=== PATIENT | female | born 1960 | race Caucasian/White ===

== ENCOUNTER 2019-10-23 07:36 | Day surgery (SDC) | payer BC ==
[2019-10-17 11:18] LABS: BASOPHILS # (AUTO) 0.1 X10'3 (0-0.2); BASOPHILS % (AUTO) 0.7 % (0-1); EOSINOPHILS # (AUTO) 0.1 X10'3 (0-0.9); EOSINOPHILS % (AUTO) 1.2 % (0-6); LYMPHOCYTES # (AUTO) 1.6 X10'3 (1.1-4.8); LYMPHOCYTES % (AUTO) 22.7 % (21-51); MEAN CORPUSCULAR HEMOGLOBIN 33.4 PG (27.0-31.0); MEAN CORPUSCULAR HGB CONC 33.4 g/dL (33.0-36.5); MEAN CORPUSCULAR VOLUME 99.9 FL (78-98); MEAN PLATELET VOLUME 8.9 FL (7.4-10.4); MONOCYTES # (AUTO) 0.4 X10'3 (0-0.9); MONOCYTES % (AUTO) 5.2 % (2-12); NEUTROPHILS % (AUTO) 70.2 % (42-75); PRE OP HEMATOCRIT 44.8 % (35.0-45.0); PRE OP PLATELET COUNT 250 X10'3 (140-440); RED BLOOD COUNT 4.48 X10'6 (4.20-5.60); RED CELL DISTRIBUTION WIDTH 14.1 % (11.5-14.5)
[2019-10-17 11:18] LABS: CLARITY,URINE SLIGHTLY CLOUDY (Clear); COLOR,URINE YELLOW (Yellow); GLUCOSE, URINE NEGATIVE (Neg); KETONES,URINE NEGATIVE (Neg); LEUKOCYTE ESTERASE ,URINE NEGATIVE (Neg); NITRITES, URINE NEGATIVE (Neg); OCCULT BLOOD,URINE NEGATIVE (Neg); PROTEIN,URINE 30 mg/dl (Neg); UROBILINOGEN,URINE 0.2 E.U/dL (0.2-1.0)
[2019-10-17 11:25] LABS: PRE OP PROTIME 10.7 SECONDS (9.0-12.0)
[2019-10-17 11:26] LABS: UA COLLECTION TYPE CLN CATCH MIDSTREAM
[2019-10-17 11:27] LABS: MUCUS STRANDS FEW /LPF (Neg); SQUAMOUS EPITHELIAL CELL,UR FEW /LPF (FEW)
[2019-10-17 11:28] LABS: BACTERIA,URINE 1+ /HPF (Neg); RBC,URINE 0-2 /HPF (0-2); WBC,URINE 0-4 /HPF (0-4)
[2019-10-17 11:31] LABS: ALBUMIN 4.2 G/DL (3.4-5.0); ALBUMIN/GLOBULIN RATIO 1.1 (1.1-1.5); ALKALINE PHOSPHATASE 84 IU/L (46-116); BLOOD UREA NITROGEN 16 MG/DL (7-18); BUN/CREATININE RATIO 16.2 (6.6-38.0); CALCIUM 9.4 MG/DL (8.5-10.1); CHLORIDE 107 MMOL/L (99-107); CREATININE 0.99 MG/DL (0.40-0.90); PRE OP ALT 39 U/L (30-65); PRE OP ANION GAP 10 (8-16); PRE OP AST 26 U/L (10-37); PRE OP BILIRUB, TOTAL 0.3 MG/DL (0.0-1.0); PRE OP GLUCOSE 90 MG/DL (70-104); PRE OP SODIUM 141 MMOL/L (135-145); TOTAL CARBON DIOXIDE 24.5 MMOL/L (24-32); TOTAL PROTEIN 7.9 G/DL (6.4-8.2); eGFR 58 ML/MIN
[2019-10-17 11:32] LABS: PRE OP POTASSIUM 4.4 MMOL/L (3.4-5.1)
[2019-10-23] VITALS (20 sets, daily range): BP systolic 109–150; BP diastolic 71–86
[~2019-10-23] VITALS: Ht 160 cm; Wt 70.3 kg
[~2019-10-23 07:36] MED LIST: ATOR-2 PO; BUPIVAcaine/PF 2.5 mg/ml (0.25%) 30ml vial ONE; MELA10TA2 PO; SERT100T10 PO; VITAMIN C; VITAMIN D; VITAMIN E; ceFOXitin sod/dextrose 2g/50ml 50 ML IV ONE; famotidine 20mg tablet PO ONE; meperidine/PF 25mg/ml syringe IV PRN; morphine 2 MG/ML inj. syringe IV PRN; morphine 4 MG/ML inj SYRINge IV PRN; ondansetron/PF 4mg/2ml inj IV PRN; proCHLORperazine 10 MG/2 ml inj IV PRN; ringers solution, lacted 1,000 ML IV SCH
[2019-10-23] MEDS ORDERED: propofol inj 20 ML IV ONE (09:03)
[2019-10-23] MEDS ORDERED: midazolam 2 mg/2 ml injection ONE (09:03)
[2019-10-23] MEDS ORDERED: LIDOcaine 2% (20mg/ml) 5ml vial ONE (09:03)
[2019-10-23] MEDS ORDERED: fentaNYL /PF 50mcg/ml 5ml ampule ONE (09:03)
[2019-10-23] MEDS ORDERED: rocuronium 10mg/ml inj IV ONE (09:04)
[2019-10-23] MEDS ORDERED: desflurane 240ml liquid inh. IH ONE (09:05)
[2019-10-23] MEDS ORDERED: dexamethasone sod phosphate 10mg/ml inj ONE (09:05)
[2019-10-23] MEDS ORDERED: ondansetron/PF 4mg/2ml inj ONE (11:13)
--- NOTE | 2019-10-23 11:32 | NUR ---
RECEIVED FROM OR VIA [facility] ACCOMPANIED BY ANESTHESIOLOGIST DR CALLE, REPORT GIVEN. PT DROWSY BUT AROUSES EASILY AND DENIES PAIN AT THIS TIME. 20 GAUGE PIV L WRIST PATENT AND RUNNING LR AT 100 ML/HR. LG AND SMALL BANDAIDS X4 TO ABD CDI, SAMARA PAD IN PLACE WITH SCANT SS DRAINAGE. ABD SOFT, VSS, SKIN PINK AND WARM, GOOD CAP REFILL, RESTING COMFORTABLY.
== END 2019-10-23 14:32 | disposition home or self-care (01) ==
LOC: PAS 07:36
PROVIDERS: ATTEND Obstetrics & Gynecology
DX: R10.2 Pelvic and perineal pain (principal); D25.9 Leiomyoma of uterus, unspecified; F32.9 Major depressive disorder, single episode, unspecified; R87.811 Vaginal high risk human papillomavirus (HPV) DNA test positive; R87.620 Atypical squamous cells of undetermined significance on cytologic smear of vagina (ASC-US); Z88.2 Allergy status to sulfonamides; Z87.891 Personal history of nicotine dependence; Z98.890 Other specified postprocedural states
CPT/HCPCS: 36415; 58571; 80053; 81001; 82948; 85025; 85610; 85730; 86885; 86900; 86901; 93005; C1758; J0694; J1100; J2001; J2175; J2250; J2405; J2704; J3010; J3490; J7120; U0003; A4618; A7000

== ENCOUNTER 2024-09-18 12:47 | Inpatient (IN) | payer BC, SELFPAY ==
[~2024-09-18] VITALS: Ht 160 cm; Wt 76.6 kg
[~2024-09-18 12:47] MED LIST changes: -BUPIVAcaine/PF 2.5 mg/ml (0.25%) 30ml vial ONE; +SERT-434 PO; -SERT100T10 PO; -ceFOXitin sod/dextrose 2g/50ml 50 ML IV ONE; -famotidine 20mg tablet PO ONE; -meperidine/PF 25mg/ml syringe IV PRN; -morphine 2 MG/ML inj. syringe IV PRN; -morphine 4 MG/ML inj SYRINge IV PRN; -ondansetron/PF 4mg/2ml inj IV PRN; -proCHLORperazine 10 MG/2 ml inj IV PRN; -ringers solution, lacted 1,000 ML IV SCH
--- NOTE | 2024-09-18 15:26 | Physician Documentation ---
History of Present Illness ~ Chief Complaint: Back Pain Stated Complaint: BACK PAIN Time Seen by MD: 15:08 HPI This is a 64-year-old female who presents with lumbar back pain onset August 08, patient reports that she was diagnosed with a L1 compression fracture in prescribed Cades and muscle relaxers by her primary care provider, patient is awaiting an MRI on October 03. Patient reports that she aggravated her back pain weeks ago while moving items in her freezer. Patient reports that despite pain medications prescribed by care provider the pain is intolerable. Patient reports no new numbness, weakness, or loss of bowel or bladder control however does report significant constipation and feeling of bloating with right-sided abdominal pain, patient reports that she has had two bowel movements since August 08, with last bowel movement and proximally two weeks ago. Patient reports she is still passing gas, reports no vomiting or fever. Medication Reconciliation Allergies: Coded Allergies: Sulfa (Sulfonamide Antibiotics) (Verified Adverse Reaction, Unknown, FEELS LIKE I AM HAVING A HEART ATTACK, 09/18/24) Scheduled Cyclobenzaprine HCl (Cyclobenzaprine HCl), 1 TAB PO Q8H, (Reported) Zinc Sulfate (Zinc), 1 TAB PO DAILY, (Reported) Scheduled PRN Hydrocodone Bit/Acetaminophen (Hydrocodone-Apap 10-325 Tablet), 1 TAB PO TID PRN PRN for pain, (Reported) Miscellaneous Medications [Vitamin C ], Unknown Dose, (Reported) [Vitamin D], (Reported) [Vitamin E], (Reported) Discontinued Medications Atorvastatin Calcium (Atorvastatin Calcium), 80 MG PO QPM, (Reported) Discontinued Reason: patient no longer taking Melatonin (Melatonin), 1 TAB PO HS, (Reported) Discontinued Reason: patient no longer taking Sertraline HCl (Sertraline HCl), 100 MG PO DAILY, (Reported) Discontinued Reason: patient no longer taking Review of Systems ROS Low back pain, constipation, and right-sided abdominal pain as stated above in the HPI, otherwise all systems are reviewed and negative. Physical Exam Physical Exam Vital Signs: Temperature: 97.6, Source: Temporal, Heart Rate: 104, Respiratory Rate: 18, BP: 126/84, Pulse Oximetry: 99, Weight: 76.550 Physical Exam VITALS: Reviewed and as above. GENERAL: Alert, nontoxic appearing, no apparent distress. RESPIRATORY: No increased work of breathing, no respiratory distress, speaking in full clear sentences, lung sounds clear in all jimenez CV: Regular rate and rhythm no murmur BACK: Nontender to palpation including no midline tenderness to palpation, no CVA tenderness GI: Nondistended, nontender to palpation, no rebound, no guarding, bowel sounds present Progress Progress Note 1947: Spoke with hospitalist resident Dr. Villagran who kindly accepts patient for admission Results/Orders Results/Orders Orders - KALIN ABEBE Urinalysis, Cult If Indicated (09/18/24 15:17) Ct Abdomen Pelvis (09/18/24 16:53) Ondansetron Inj. (Zofran 4mg/2ml Vial) (09/18/24 16:50) Polyethylene Glycol 3350 Pkt (Miralax Pa (09/18/24 21:00) Page Hospitalist (09/18/24 18:52) Fill Out Med Reconciliation (09/18/24 18:52) Completed Orders - KALIN ABEBE Hydrocodone/Apap 10/325 (Cades 10/325mg (09/18/24 15:20) Cbc/Diff (09/18/24 15:17) Lipase (09/18/24 15:17) CMP (09/18/24 15:17) Ct Abdomen Pelvis (09/18/24 16:53) Iohexol 300mg/Ml 100ml Inj. (Omnipaque-3 (09/18/24 16:04) Normal Saline 1000ml (Sodium Chloride 10 (09/18/24 16:20) Ketorolac Trometh 15mg/Ml Vial (Toradol (09/18/24 16:50) Morphine 4mg/Ml Inj. (Morphine Inj.) (09/18/24 16:50) Methylnaltrexone Br Inj (Relistor Inj (09/18/24 18:40) Hgb A1c (09/18/24 15:35) Medications Received in ER Medications (Trade) Dose Ordered Sig/Franky Route PRN Reason Start Time Stop Time Status Last Admin Dose Admin (Miralax packet) 17 gm HS PO 09/18/24 21:00 09/18/24 22:04 17 GM (Cades 5/325mg tablet) 1 tab Q4H PRN PO MODERATE PAIN 4-6 09/18/24 20:05 09/18/24 22:00 1 TAB (morphine inj.) 1 mg Q4H PRN IV moderate pain (4-6) 09/18/24 20:05 09/18/24 22:06 1 MG (morphine inj.) 2 mg Q4H PRN IV severe pain (7-10) 09/18/24 20:05 09/19/24 02:12 2 MG Vital Signs 09/18/24 09/18/24 09/18/24 09/18/24 13:10 15:56 17:22 17:53 Temp 97.6 Pulse 104 Resp 18 16 18 15 B/P (MAP) 126/84 Pulse Ox 99 09/18/24 09/18/24 09/18/24 09/18/24 17:53 19:32 20:40 22:00 Resp 15 12 18 12 B/P (MAP) 09/18/24 09/18/24 09/18/24 22:06 22:08 22:08 Resp 16 12 12 Laboratory Tests Test 09/18/24 15:35 White Blood Count 8.4 Red Blood Count 4.63 Hemoglobin 14.5 Hematocrit 42.8 Mean Corpuscular Volume 92.4 Mean Corpuscular Hemoglobin 31.2 H Mean Corpuscular Hemoglobin Concent 33.8 Red Cell Distribution Width 13.4 Platelet Count 318 Mean Platelet Volume 7.8 Neutrophils (%) (Auto) 77.0 H Lymphocytes (%) (Auto) 15.5 L Monocytes (%) (Auto) 4.5 Eosinophils (%) (Auto) 2.3 Basophils (%) (Auto) 0.7 Neutrophils # (Auto) 6.4 Lymphocytes # (Auto) 1.3 Monocytes # (Auto) 0.4 Eosinophils # (Auto) 0.2 Basophils # (Auto) 0.1 CBC Comment Sodium Level 142 Potassium Level 3.7 Chloride Level 104 Carbon Dioxide Level 24.7 Anion Gap 13 Blood Urea Nitrogen 21 H Creatinine 1.00 H Estimated GFR/1.73 m2 56 BUN/Creatinine Ratio 21.0 H Glucose Level 120 H Hemoglobin A1c 5.7 Calcium Level 10.1 Total Bilirubin 0.4 Aspartate Amino Transf (AST/SGOT) 26 Alanine Aminotransferase (ALT/SGPT) 38 Alkaline Phosphatase 137 H Total Protein 8.2 Albumin 3.9 Globulin 4.3 Albumin/Globulin Ratio 0.9 L Lipase 33 Chemistry Comments EKG/XRAY/CT/US/VASC/MRI CT : Impression EXAM: CT Abdomen and Pelvis With Intravenous Contrast CLINICAL INDICATION: R Abd Pain TECHNIQUE: Axial computed tomography images of the abdomen and pelvis with in travenous contrast. This CT exam was performed using one or more of the following dose reduction techniques: automated exposure control, adjustment of the mA and/or kV according to patient size, and/or use of iterative reconstruction technique. CONTRAST: COMPARISON: None FINDINGS: LUNG BASES: Unremarkable. No mass. No consolidation. MEDIASTINUM: Small esophageal hiatal hernia. ABDOMEN: LIVER: Hepatomegaly with fatty infiltration. GALLBLADDER AND BILE DUCTS: Unremarkable. No calcified stones. No ductal dilation. PANCREAS: Unremarkable. No mass. No ductal dilation. SPLEEN: Unremarkable. No splenomegaly. ADRENALS: Unremarkable. No mass. KIDNEYS AND URETERS: Unremarkable. No stones within either kidney. No hydronephrosis. STOMACH AND BOWEL: Fecal retention in the colon consistent with constipation. No obstruction. No mucosal thickening. PELVIS: APPENDIX: No findings to suggest acute appendicitis. BLADDER: Unremarkable. No mass. REPRODUCTIVE: Unremarkable as visualized. ABDOMEN and PELVIS: INTRAPERITONEAL SPACE: Unremarkable. No free air. No significant fluid collection. BONES/JOINTS: Severe anterior wedging deformity of L1 and T12 vertebral bodies. Further evaluation with MRI is recommended. Healed fracture deformity left inferior pubic ramus. No dislocation. SOFT TISSUES: Unremarkable. VASCULATURE: Unremarkable. No abdominal aortic aneurysm. LYMPH NODES: Unremarkable. No enlarged lymph nodes. OTHER FINDINGS: . IMPRESSION: 1. Severe anterior wedging deformity of L1 and T12 vertebral bodies. Further evaluation with MRI is recommended. 2. Small esophageal hiatal hernia. 3. Hepatomegaly with fatty infiltration. 4. Fecal retention in the colon consistent with constipation. 5. No obstructive uropathy. Electronically Signed by:HARSH MELENDREZ MD Date & Time: 09/18/241727 Dictated by: HARSH MELENDREZ MD Dictation date and time: 09/18/241727 I have reviewed and agree with the radiology report. I have reviewed and interpreted the imaging as: No air-fluid levels, no free peritoneal air Medical Decision Making Findings This 64-year-old female with known L1 compression fracture presented with severe low back pain that has not well managed with prescribed opioid pain medications or muscle relaxers, patient received oral opioid pain medication without decrease in pain, patient required IV Toradol and IV morphine to achieve decrea se in pain in is still reporting pain though it has decreased from initial presentation. CT abdomen pelvis obtained due to patient reporting only two bowel movements in the last six weeks and a feeling of abdominal distention, the CT did demonstrate evidence of constipation and confirmed L1 compression fracture though there was no evidence of retropulsion. Was reassuring CT did n ot demonstrate evidence of bowel obstruction, drink patient does not have severe abdominal pain to palpation, and reassuring patient is still passing gas. I believe patient would benefit from admission for pain management for intractable back pain. Was team contacted who kindly accepts patient for admission. Differential Dx:Considerations: Include: Appendicitis, Bowel obstruction, Cholelithiasis, Musculoskeletal pain, Pancreatitis, Pyelonephritis, Strain, Urinary obstruction, Urolithiasis Departure Disposition: ADMITTED INPATIENT Admitted to Inpatient Unit: to hospitalist Impression: Primary Impression: Intractable back pain Additional Impression: Constipation Qualified Codes: K59.03 - Drug induced constipation Referrals: NO PRIMARY CARE PROVIDER (PCP) Education Educated: Patient, Family Educated regarding: diagnosis, treatment, prognosis Signature Scribe Signature: No scribe Attestation: The note accurately reflects work and decisions made by me.ABISAI Velez 09/19/24 02:53 KALIN ABEBE Sep 18, 2024 15:26
[2024-09-18 15:46] LABS: BASOPHILS # (AUTO) 0.1 X10'3 (0-0.2); BASOPHILS % (AUTO) 0.7 % (0-1); EOSINOPHILS # (AUTO) 0.2 X10'3 (0-0.9); EOSINOPHILS % (AUTO) 2.3 % (0-6); HEMATOCRIT 42.8 % (35.0-45.0); HEMOGLOBIN 14.5 g/dl (12.0-16.0); LYMPHOCYTES # (AUTO) 1.3 X10'3 (1.1-4.8); LYMPHOCYTES % (AUTO) 15.5 % (21-51); MEAN CORPUSCULAR HEMOGLOBIN 31.2 PG (27.0-31.0); MEAN CORPUSCULAR HGB CONC 33.8 g/dL (33.0-36.5); MEAN CORPUSCULAR VOLUME 92.4 FL (78-98); MEAN PLATELET VOLUME 7.8 FL (7.4-10.4); MONOCYTES # (AUTO) 0.4 X10'3 (0-0.9); MONOCYTES % (AUTO) 4.5 % (2-12); NEUTROPHILS # (AUTO) 6.4 X10'3 (1.8-7.7); PLATELET COUNT 318 X10'3 (140-440); RED BLOOD COUNT 4.63 X10'6 (4.20-5.60); RED CELL DISTRIBUTION WIDTH 13.4 % (11.5-14.5); WHITE BLOOD COUNT 8.4 X10'3 (4.5-11.0)
[2024-09-18] MEDS: HYDROcodone/acetaminophen 10/325mg tab PO ONE (15:56)
[2024-09-18 16:00] LABS: ALANINE AMINOTRANSFERASE 38 U/L (12-78); ALBUMIN 3.9 G/DL (3.4-5.0); ALBUMIN/GLOBULIN RATIO 0.9 (1.1-1.5); ALKALINE PHOSPHATASE 137 IU/L (46-116); ANION GAP 13 (8-16); ASPARTATE AMINO TRANSFERASE 26 U/L (10-37); BILIRUBIN,TOTAL 0.4 MG/DL (0.1-1.0); BLOOD UREA NITROGEN 21 MG/DL (7-18); CALCIUM 10.1 MG/DL (8.5-10.1); CHLORIDE 104 MMOL/L (99-107); GLUCOSE 120 MG/DL (70-104); LIPASE 33 U/L (16-77); POTASSIUM 3.7 MMOL/L (3.5-5.1); SODIUM 142 MMOL/L (135-145); TOTAL CARBON DIOXIDE 24.7 MMOL/L (24-32); TOTAL PROTEIN 8.2 G/DL (6.4-8.2); eCRCL 48 ML/MIN; eGFR 56 ML/MIN
[2024-09-18] MEDS ORDERED: iohexol 300mg/ml 100ml inj. ONE (16:04)
[2024-09-18] MEDS: morphine 4 MG/ML inj SYRINge IV ONE (17:22)
[2024-09-18] MEDS: ketorolac trometh 15mg/ml vial 15 MG/ML ML IM ONE (17:22)
[2024-09-18] MEDS: normal saline 1000ML IV soln IVB ONE (17:23)
[2024-09-18] MEDS: ondansetron/PF 4mg/2ml inj IV PRN (17:30)
--- NOTE | 2024-09-18 17:31 | RADIOLOGY REPORT ---
EXAM: CT Abdomen and Pelvis With Intravenous Contrast CLINICAL INDICATION: R Abd Pain TECHNIQUE: Axial computed tomography images of the abdomen and pelvis with intravenous contrast. Th is CT exam was performed using one or more of the following dose reduction techniques: automated exp osure control, adjustment of the mA and/or kV according to patient size, and/or use of iterative gabriela nstruction technique. CONTRAST: COMPARISON: None FINDINGS: LUNG BASES: Unremarkable. No mass. No consolidation. MEDIASTINUM: Small esophageal hiatal hernia. ABDOMEN: LIVER: Hepatomegaly with fatty infiltration. GALLBLADDER AND BILE DUCTS: Unremarkable. No calcified stones. No ductal dilation. PANCREAS: Unremarkable. No mass. No ductal dilation. SPLEEN: Unremarkable. No splenomegaly. ADRENALS: Unremarkable. No mass. KIDNEYS AND URETERS: Unremarkable. No stones within either kidney. No hydronephrosis. STOMACH AND BOWEL: Fecal retention in the colon consistent with constipation. No obstruction. No mucosal thickening. PELVIS: APPENDIX: No findings to suggest acute appendicitis. BLADDER: Unremarkable. No mass. REPRODUCTIVE: Unremarkable as visualized. ABDOMEN and PELVIS: INTRAPERITONEAL SPACE: Unremarkable. No free air. No significant fluid collection. BONES/JOINTS: Severe anterior wedging deformity of L1 and T12 vertebral bodies. Further evaluation with MRI is recommended. Healed fracture deformity left inferior pubic ramus. No dislocation. SOFT TISSUES: Unremarkable. VASCULATURE: Unremarkable. No abdominal aortic aneurysm. LYMPH NODES: Unremarkable. No enlarged lymph nodes. OTHER FINDINGS: . IMPRESSION: 1. Severe anterior wedging deformity of L1 and T12 vertebral bodies. Further evaluation with MRI is recommended. 2. Small esophageal hiatal hernia. 3. Hepatomegaly with fatty infiltration. 4. Fecal retention in the colon consistent with constipation. 5. No obstructive uropathy.
[2024-09-18] MEDS: methylnaltrexone br 12mg/0.6ml inj***SubQ only SQ ONE (19:05)
[2024-09-18] MEDS ORDERED: magnesium sulf-water 4G/100mL 100 ML IV PRN (20:05)
[2024-09-18] MEDS ORDERED: potassium Cl 20 mEq SR tablet PO PRN ×2 (20:05)
[2024-09-18] MEDS ORDERED: mag hydrox/Alum hydrox/simeth 30ml oral suspension PO PRN (20:05)
[2024-09-18] MEDS ORDERED: ondansetron/PF 4mg/2ml inj IV PRN (20:05)
[2024-09-18] MEDS ORDERED: magnesium Cl slow-release 64mg tablet PO PRN (20:05)
[2024-09-18] MEDS ORDERED: acetaminophen 325mg tablet PO PRN (20:05)
[2024-09-18] MEDS ORDERED: magnesium sulf-water 2g/50mL 50 ML IV PRN (20:05)
[2024-09-18] MEDS ORDERED: potassium Cl 40MEQ/1/2NS 520ml 520 ML IV PRN (20:05)
[2024-09-18] MEDS: HYDROcodone/acetaminophen 5mg/325mg tablet PO PRN (20:40)
[2024-09-18 20:46] LABS: HEMOGLOBIN A1C 5.7 % (4.5-6.2)
[2024-09-18] MEDS: polyethylene glycol 3350 17gm powd pack PO SCH (22:04)
[2024-09-18] MEDS: morphine 2 MG/ML inj. syringe IV PRN (22:06)
--- NOTE | 2024-09-18 22:07 | HISTORY AND PHYSICAL-Residence ---
History & Physical Providers to CC Resident Creating Document: LUIGI VILLAGRAN, JOSE ~ History of Present Illness Reason for Admit\Complaint: Back pain History of Present Illness This is a 64-year-old female with past medical history of TIA, vulvar cancer came to the ER with a chief complaint of and tolerable back pain. In 08/04, while she was trying to lift heavy pot, she felt a popping sensation in her back and had pain, she went to her PCP, was given [place] and cyclobenzaprine for pain and an x-ray was done which showed L1 compression fracture. She was referred to orthopedic fashion, Dr. Christopher Rios who recommended an MRI which is scheduled for 10/03/24. Her pain was controlled for a few days. About two weeks ago she tried to move a heavy meat packet in the Fridge and post that she started to have on tolerable, could not be managed with the oral pain medications. She was unable to get up because of pain. She denied any bowel or bladder incontinence. In 2002 she fell off from a horse, suffered injuries to pelvis and sacrum Currently her back pain scale is 8/10 She also had constipation since she started taking the [place]. Her last bowel movement was two weeks ago, she tried Dulcolax Metamucil but no bowel movement. She is able to pass bowel gas. She has diffuse abdominal pain and feels bloated. Denies any nausea or vomiting. Allergies: Coded Allergies: Sulfa (Sulfonamide Antibiotics) (Verified Adverse Reaction, Unknown, FEELS LIKE I AM HAVING A HEART ATTACK, 09/18/24) Home Medications Home Medications Active Reported Melatonin 10 Mg Tablet 1 Tab PO HS 30 Days [Vitamin E] [Vitamin D] [Vitamin C ] Unknown Strength Unknown Dose Atorvastatin Calcium 80 Mg Tablet 80 Mg PO QPM Sertraline HCl 100 Mg Tablet 100 Mg PO DAILY Past Medical History Past Medical History History of kidney disease History of TIA, once in 2017 and once in 2018 History of vulvar cancer, surgery Past Surgical History Surgical History Comment History of surgery for vulvar cancer Hysterectomy Past Social History Social History Comment Quit smoking 10 years ago, previously smoked half pack a day for 20 years Rare alcohol use Occasional marijuana use Lives with significant other Uses a cane to move around. ROS Constitutional: Denies: no symptoms reported, see HPI, chills, diaphoresis, fever, malaise, weakness, other Eyes: Denies: no symptoms reported, see HPI, pain, discharge, blurred vision, double vision, itching, photophobia, redness, tearing, other ENT: Denies: no symptoms reported, see HPI, ear pain, ear bleeding, ear discharge, hearing loss, ear ringing, nose pain, nose bleeding, nose congestion, nose discharge, throat pain, throat swelling, voice change, mouth pain, mouth bleeding, mouth swelling, other Cardiovascular: Denies: no symptoms reported, see HPI, chest pain, left arm pain, diaphoresis, lightheadedness, syncope, edema, palpitations, irregular heart rate, other Gastrointestinal: Reports: constipated Genitourinary: Denies: no symptoms reported, see HPI, burning, discharge, dysuria, frequency, flank pain, hematuria, incontinence, pain, decreased urine output, urgency, other Neurological: Denies: no symptoms reported, see HPI, speech problem, headache, dizziness, fainting, tingling, left sided numbness, right sided numbness, left sided weakness, right sided weakness, problems walking, unable to move lower ext, unable to move upper ext, petit mal seizures, tonic-clonic seizures, cognitive dysfunction, other Musculoskeletal: Reports: pain Exam Vitals: Vital Signs Date Time Temp Pulse Resp B/P (MAP) Pulse Ox O2 Delivery O2 Flow Rate FiO2 09/18/24 22:00 12 09/18/24 19:32 09/18/24 13:10 97.6 104 99 General: General Awake and Alert, not in distress HEENT: Conjunctiva pink, Sclera clear Neck: Supple without masses and tenderness. Resp: Bilateral breath sounds are clear Heart: Regular Rate and rhythm, normal S1 and S2 without murmur, rub or gallop. Abdomen: Soft , diffuse tenderness, no rigidity, no organomegaly, bowel sounds present. Extremities: No cyanosis,clubbing, no pedal Skin: Warm and Dry. Neurology: No focal motor or sensory deficits. Diagnostic Data Last Recorded Lab Results: 09/18/24 1535 09/19/24 0522 Advance Care Planning Advanced Care plannin - 30 Minutes (I spent 17 minutes in discussing various resuscitative measures, the patient chose to be DNR.) Additional Plan Assessment This is a 64-year-old female with past medical history of TIA, vulvar cancer came to the ER with a chief complaint of and tolerable back pain. Patient is being admitted for intolerable back pain and constipation. Plan Intolerable back pain Lumbar compression fracture No saddle anesthesia, no bladder or bowel incontinence CT abdomen showed Severe anterior wedging deformity of L1 and T12 vertebral bodies. MRI of lumbar spine ordered Pain management-morphine and [place] p.r.n. Severe constipation secondary to opioids CT abdomen showed fecal retention in the colon Patient was given methyl naltrexone and ketorolac in the ER Soapsuds enema ordered Colace b.i.d., MiraLax daily, TSH ordered Code status: DNR DVT prophylaxis: Heparin Line/tubes : peripheral IV line Diet : regular diet Luigi Villagran M.D PGY1 Date of Service: Sep 18, 2024 Billing Provider: SHONA AUSTIN MD Common Visit Codes: 31576-MZEOBOG INP/OBS CARE (HIGH) Assessment/Plan Assessment evaluated the patient with the help of residents. Discussed the case with them. Reviewed notes by Dr.Katta griffiths. Agree with her assessments and plans. I also reviewed the patient's records. This included labs, radiology, and notes from other providers. No additional points at this time. LUIGI VILLAGRAN, RES Sep 18, 2024 22:07 SHONA AUSTIN MD Sep 19, 2024 06:39
[2024-09-18 23:42] LABS: BILIRUBIN,URINE NEGATIVE (Neg); CLARITY,URINE CLEAR (Clear); COLOR,URINE YELLOW (Yellow); GLUCOSE, URINE NEGATIVE (Neg); KETONES,URINE NEGATIVE (Neg); LEUKOCYTE ESTERASE ,URINE NEGATIVE (Neg); NITRITES, URINE NEGATIVE (Neg); OCCULT BLOOD,URINE NEGATIVE (Neg); PROTEIN,URINE NEGATIVE (Neg); UROBILINOGEN,URINE 0.2 E.U/dL (0.2-1.0)
[2024-09-18 23:44] LABS: UA COLLECTION TYPE NON-SPECIFIED
[2024-09-19] VITALS (7 sets, daily range): BP systolic 115–148; BP diastolic 74–89; PULSE 76–99; RESP 14–16; TEMP 96.8–98.5; O2SAT 96–100
[2024-09-19] MEDS ORDERED: CYCL-394 PO (01:53)
[2024-09-19] MEDS ORDERED: HYDR-3973 PO (01:53)
[2024-09-19] MEDS ORDERED: ZINC220T3 PO (01:53)
[2024-09-19] MEDS: morphine 2 MG/ML inj. syringe IV PRN (02:12)
[2024-09-19] MEDS: HYDROcodone/acetaminophen 10/325mg tab PO PRN (05:38)
[2024-09-19 06:05] LABS: BASOPHILS % (AUTO) 0.6 % (0-1); EOSINOPHILS # (AUTO) 0.2 X10'3 (0-0.9); HEMOGLOBIN 13.1 g/dl (12.0-16.0); LYMPHOCYTES # (AUTO) 1.7 X10'3 (1.1-4.8); LYMPHOCYTES % (AUTO) 22.3 % (21-51); MEAN CORPUSCULAR HEMOGLOBIN 31.2 PG (27.0-31.0); MEAN CORPUSCULAR HGB CONC 33.6 g/dL (33.0-36.5); MEAN CORPUSCULAR VOLUME 92.9 FL (78-98); MEAN PLATELET VOLUME 7.6 FL (7.4-10.4); MONOCYTES # (AUTO) 0.7 X10'3 (0-0.9); MONOCYTES % (AUTO) 8.6 % (2-12); NEUTROPHILS # (AUTO) 5.1 X10'3 (1.8-7.7); NEUTROPHILS % (AUTO) 65.5 % (42-75); PLATELET COUNT 246 X10'3 (140-440); RED CELL DISTRIBUTION WIDTH 13.4 % (11.5-14.5); WHITE BLOOD COUNT 7.7 X10'3 (4.5-11.0)
[2024-09-19 06:28] LABS: ALANINE AMINOTRANSFERASE 27 U/L (12-78); ALBUMIN 3.3 G/DL (3.4-5.0); ALBUMIN/GLOBULIN RATIO 0.9 (1.1-1.5); ALKALINE PHOSPHATASE 120 IU/L (46-116); ANION GAP 11 (8-16); ASPARTATE AMINO TRANSFERASE 20 U/L (10-37); BILIRUBIN,TOTAL 0.4 MG/DL (0.1-1.0); BLOOD UREA NITROGEN 15 MG/DL (7-18); BUN/CREATININE RATIO 17.2 (10.0-20.0); CALCIUM 9.7 MG/DL (8.5-10.1); CHLORIDE 104 MMOL/L (99-107); CHOL/HDL RATIO 3.1 (0.00-4.99); CHOLESTEROL 189 MG/DL (0-200); CREATININE 0.87 MG/DL (0.40-0.90); GLUCOSE 92 MG/DL (70-104); HDL CHOLESTEROL 61 MG/DL (35-60); LDL CHOLESTEROL 71 MG/DL (50-100); MAGNESIUM 1.8 MG/DL (1.5-2.4); POTASSIUM 3.9 MMOL/L (3.5-5.1); SODIUM 141 MMOL/L (135-145); THYROID STIMULATING HORMONE 6.54 ulU/ml (0.34-4.50); TOTAL PROTEIN 6.9 G/DL (6.4-8.2); TRIGLYCERIDES 176 MG/DL (20-135); eCRCL 55 ML/MIN; eGFR 66 ML/MIN
[2024-09-19] MEDS: K and/or MAG REPLACEMENT MC SCH (08:00)
[2024-09-19] MEDS: docusate sod 100mg capsule PO SCH (08:29)
[2024-09-19] MEDS: heparin, porcine 5000 units/ml vial SQ SCH (08:32)
[2024-09-19] MEDS ORDERED: morphine 4 MG/ML inj SYRINge IV PRN ×2 (11:08)
--- NOTE | 2024-09-19 12:05 | PROGRESS NOTE ---
Daily Progress Note Providers to CC ~ Antibiotic Timeout Antibiotic Ordered?: No Subjective No acute events overnight. Patient examined at bedside. No new complaints. Patient denies chest pain, sob, palpitations, abdominal pain, n/v/d. Patient reports back pain that is now controlled with analgesics. Vss, labs unremarkable. CT shows severe wedge deformity of thoracic and lumbar spine. MRI today. Pending PT eval. Objective Vital Signs Date Time Temp Pulse Resp B/P (MAP) Pulse Ox O2 Delivery O2 Flow Rate FiO2 09/19/24 10:44 18 09/19/24 06:00 97.1 99 120/75 (90) 97 Room Air Result Diagram: 09/19/2452109/19/24521 Physical Exam General: Generalized weakness, A&Ox 3, NAD HEENT: Normocephalic, PERRLA Neck: Supple, trachea midline, no JVD Chest: Clear to auscultation bilaterally Cardiovascular: RRR, S1&S2 GI: Soft and nontender Extremities: No cyanosis/clubbing/or edema ELECTRIC NEEDLE SPECIALIST: CN II-XII intact, no focal deficits Musculoskeletal: Paraspinal muscle tenderness Skin: Warm and intact Problem\Assessment\Plan This is a 64-year-old female with past medical history of TIA, vulvar cancer came to the ER with a chief complaint of intractable back pain. # Intractable back pain # Lumbar compression fracture -no saddle anesthesia, no bladder or bowel incontinence, CT shows severe anterior wedging deformity of L1 and T12 vertebral bodies -supportive care, follow MRI, PT eval # Severe constipation 2/2 opioid use -CT abdomen showed fecal retention in the colon -Senna-S bid Code status: DNR DVT/VTE prophylaxis: heparin Date of Service: Sep 19, 2024 Billing Provider: MARY HEARN Common Visit Codes: 65248-BEDRKMS INP/OBS CARE (HIGH) MARY HEARNP Sep 19, 2024 12:05
--- NOTE | 2024-09-19 15:30 | RADIOLOGY REPORT ---
PROCEDURE: MR MRI THORACIC SPINE Indication: severe wedging deformity COMPARISON: None TECHNIQUE: Multiplanar multisequence images of the the thoracic, lumbar spine are obtained. FINDINGS: Acute to subacute T12 compression fracture withm 50% loss height and 5 mm retropulsion. Acute to subacute L1 compression fracture with 40% loss height, 5 mm retropulsion. There is correspon ding T1 hypointense signal and marrow edema within the T12 and L1 vertebral bodies. There is paraver tebral edema at T12 and L1. The remaining thoracic vertebral body heights are maintained. There is a chronic L5 compression defo rmity with 30% loss height. There is zbjx-jm-xxmaefip thoracic multilevel disc space narrowing. There is eyxf-up-yscdwdme lumbar multilevel disc space narrowing most pronounced at L4-5 and L5-S1. At T11-T12, there is retropulsion of the T12 vertebral body by 4 mm. This abuts the ventral aspect of the cord. The thecal sac measures 6 mm AP consistent with moderate to severe spinal canal stenosis. There is slight compression of the cord. No definitive cord edema seen. There is moderate bilateral neural foraminal stenosis at this level. At T12-L1, there is 4 mm retropulsion of the L1 vertebral body. The thecal sac measures approximately 7 mm AP consistent with moderate spinal canal stenosis. There is moderate bilateral neural foraminal stenosis. At T3-4, there is a right paracentral disc protrusion which narrows the right ventral aspect of the C SF space. L1-2: Small disc protrusion. Ziri-vd-gdouivrw facet and flavum hypertrophy. No spinal canal stenosis . Mzly-ai-tqaxdwkt bilateral neural foraminal stenosis. L2-3: 2 mm disc protrusion. Mild facet and flavum hypertrophy. No spinal canal stenosis. Moderate b ilateral neural foraminal stenosis. L3-4: Small disc protrusion. Kudj-pr-gtlfcisy facet and flavum hypertrophy. No spinal canal stenosis . Qehh-ko-rhcbkxhb bilateral neural foraminal stenosis. L4-5: 3 mm disc protrusion with central annular tear. Moderate facet and flavum hypertrophy. Thecal sac measures 8 mm AP. Qrsj-ie-uciwwxdp spinal canal stenosis. Moderate to severe left and moderate r ight neural foraminal stenosis. L5-S1: 3 mm central disc protrusion with annular tear. Thecal sac measures 10 mm AP. No spinal canal stenosis. Tfca-lv-ubyjtstk bilateral neural foraminal stenosis. IMPRESSION: 1. Acute/subacute T12 and L1 compression fractures with retropulsion and moderate-severe canal stenos is as described above at T11-12 and T12-L1. Recommend neurosurgical consultation. There is slight co mpression of the cord at the T12 level without definitive cord edema secondary to the retropulsion of the T12 vertebral body fracture. 2. Chronic L5 compression deformity. 3. Multilevel disc narrowing and neural foraminal stenosis as described above. nneh-uy-uqinlpks spina l canal stenosis L4-5. 4. Right paracentral disc protrusion at T3-4.
--- NOTE | 2024-09-19 15:30 | RADIOLOGY REPORT ---
PROCEDURE: MR MRI THORACIC SPINE Indication: severe wedging deformity COMPARISON: None TECHNIQUE: Multiplanar multisequence images of the the thoracic, lumbar spine are obtained. FINDINGS: Acute to subacute T12 compression fracture withm 50% loss height and 5 mm retropulsion. Acute to subacute L1 compression fracture with 40% loss height, 5 mm retropulsion. There is correspon ding T1 hypointense signal and marrow edema within the T12 and L1 vertebral bodies. There is paraver tebral edema at T12 and L1. The remaining thoracic vertebral body heights are maintained. There is a chronic L5 compression defo rmity with 30% loss height. There is onwb-zr-ntftcnlk thoracic multilevel disc space narrowing. There is svxc-zl-uvgielty lumbar multilevel disc space narrowing most pronounced at L4-5 and L5-S1. At T11-T12, there is retropulsion of the T12 vertebral body by 4 mm. This abuts the ventral aspect of the cord. The thecal sac measures 6 mm AP consistent with moderate to severe spinal canal stenosis. There is slight compression of the cord. No definitive cord edema seen. There is moderate bilateral neural foraminal stenosis at this level. At T12-L1, there is 4 mm retropulsion of the L1 vertebral body. The thecal sac measures approximately 7 mm AP consistent with moderate spinal canal stenosis. There is moderate bilateral neural foraminal stenosis. At T3-4, there is a right paracentral disc protrusion which narrows the right ventral aspect of the C SF space. L1-2: Small disc protrusion. Sjum-ou-cfrbokia facet and flavum hypertrophy. No spinal canal stenosis . Fjql-ro-whfbdbun bilateral neural foraminal stenosis. L2-3: 2 mm disc protrusion. Mild facet and flavum hypertrophy. No spinal canal stenosis. Moderate b ilateral neural foraminal stenosis. L3-4: Small disc protrusion. Mcsj-fo-llvydofd facet and flavum hypertrophy. No spinal canal stenosis . Xbyj-pg-gfijqqci bilateral neural foraminal stenosis. L4-5: 3 mm disc protrusion with central annular tear. Moderate facet and flavum hypertrophy. Thecal sac measures 8 mm AP. Cpdt-vi-wiirnucz spinal canal stenosis. Moderate to severe left and moderate r ight neural foraminal stenosis. L5-S1: 3 mm central disc protrusion with annular tear. Thecal sac measures 10 mm AP. No spinal canal stenosis. Odol-ew-gpdnlsfw bilateral neural foraminal stenosis. IMPRESSION: 1. Acute/subacute T12 and L1 compression fractures with retropulsion and moderate-severe canal stenos is as described above at T11-12 and T12-L1. Recommend neurosurgical consultation. There is slight co mpression of the cord at the T12 level without definitive cord edema secondary to the retropulsion of the T12 vertebral body fracture. 2. Chronic L5 compression deformity. 3. Multilevel disc narrowing and neural foraminal stenosis as described above. karj-ax-rbxfjklq spina l canal stenosis L4-5. 4. Right paracentral disc protrusion at T3-4.
[2024-09-19] MEDS: HYDROmorphone inj. 0.5 MG/0.5 ML DISP.SYRIN IV PRN (15:31)
[2024-09-19] MEDS: sennosides/docusate sodium tablet PO SCH (21:03)
[2024-09-20 05:28] LABS: BASOPHILS # (AUTO) 0.1 X10'3 (0-0.2); BASOPHILS % (AUTO) 0.9 % (0-1); EOSINOPHILS # (AUTO) 0.2 X10'3 (0-0.9); EOSINOPHILS % (AUTO) 3.3 % (0-6); HEMATOCRIT 34.5 % (35.0-45.0); LYMPHOCYTES # (AUTO) 1.6 X10'3 (1.1-4.8); LYMPHOCYTES % (AUTO) 26.8 % (21-51); MEAN CORPUSCULAR HEMOGLOBIN 31.9 PG (27.0-31.0); MEAN CORPUSCULAR HGB CONC 34.8 g/dL (33.0-36.5); MEAN CORPUSCULAR VOLUME 91.7 FL (78-98); MEAN PLATELET VOLUME 7.8 FL (7.4-10.4); MONOCYTES # (AUTO) 0.4 X10'3 (0-0.9); MONOCYTES % (AUTO) 7.5 % (2-12); NEUTROPHILS # (AUTO) 3.7 X10'3 (1.8-7.7); NEUTROPHILS % (AUTO) 61.5 % (42-75); PLATELET COUNT 266 X10'3 (140-440); RED BLOOD COUNT 3.76 X10'6 (4.20-5.60); WHITE BLOOD COUNT 5.9 X10'3 (4.5-11.0)
[2024-09-20] MEDS: mineral oil 133ml enema RC PRN (05:34)
[2024-09-20 05:51] LABS: ALANINE AMINOTRANSFERASE 44 U/L (12-78); ALBUMIN 3.2 G/DL (3.4-5.0); ALBUMIN/GLOBULIN RATIO 0.9 (1.1-1.5); ALKALINE PHOSPHATASE 113 IU/L (46-116); ANION GAP 9 (8-16); ASPARTATE AMINO TRANSFERASE 29 U/L (10-37); BILIRUBIN,TOTAL 0.4 MG/DL (0.1-1.0); BLOOD UREA NITROGEN 17 MG/DL (7-18); BUN/CREATININE RATIO 18.1 (10.0-20.0); CALCIUM 9.6 MG/DL (8.5-10.1); CHLORIDE 106 MMOL/L (99-107); CREATININE 0.94 MG/DL (0.40-0.90); GLUCOSE 93 MG/DL (70-104); MAGNESIUM 1.8 MG/DL (1.5-2.4); POTASSIUM 4.3 MMOL/L (3.5-5.1); SODIUM 143 MMOL/L (135-145); TOTAL CARBON DIOXIDE 27.8 MMOL/L (24-32); TOTAL PROTEIN 6.8 G/DL (6.4-8.2); eCRCL 51 ML/MIN; eGFR 60 ML/MIN
[2024-09-20 06:00] VITALS: BP 124/73; PULSE 89; RESP 16; TEMP 96.4; O2SAT 97
[2024-09-20] MEDS: magnesium hydroxide 30ml (MOM) UD suspension PO PRN (08:31)
[2024-09-20 08:35] VITALS: RESP 18; O2SAT 97
[2024-09-20 10:00] VITALS: BP 120/68; PULSE 91; RESP 18; TEMP 97.5; O2SAT 93
[2024-09-20] MEDS ORDERED: SENN-302 PO (10:05)
[2024-09-20] MEDS ORDERED: HYDR-3964 PO (10:05)
[2024-09-20] MEDS ORDERED: POLY17PO10 PO (10:05)
[2024-09-20] MEDS: bisacodyl 10mg suppository rectal RC PRN (11:42)
[2024-09-20] MEDS ORDERED: magnesium citrate 296ml oral solution PO ONE (12:55)
[2024-09-20] MEDS ORDERED: methylnaltrexone br 12mg/0.6ml inj***SubQ only SQ STA (13:48)
--- NOTE | 2024-09-20 17:37 | DISCHARGE SUMMARY ---
Discharge Summary Providers to CC ~ Discharge Summary Admission Diagnosis: Intractable back pain, compression fractures, severe constipation Hospital Course DATE OF ADMISSION: 09/18/24 DATE OF DISCHARGE: 09/20/24 Discharge Diagnosis\\Comment: Intractable back pain Lumbar compression fracture Severe constipation 2/2 opiate use Operations\\Procedures: None Consultants: None Complications: None Condition on DC: Stable New Medications: Polyethylene Glycol 3350* (Miralax*) 1 Packet Packet 1 PKT PO DAILY for constipation for 14 Days, #14 PKT dissolve in water Sennosides/Docusate Sodium (Senna Plus 8.6-50 mg Tablet) 8.6 Mg-50 Mg Tablet 1 TAB PO BID for 14 Days, #28 TAB 0 Refills Hydrocodone Bit/Acetaminophen (Hydrocodon-Acetaminophen 5-325) 5 Mg-325 Mg Tablet 1 TAB PO Q6H PRN for moderate or severe pain 4-10 for 5 Days, #20 TAB Continued Medications: Cyclobenzaprine HCl (Cyclobenzaprine HCl) 10 Mg Tablet 1 TAB PO Q8H for 10 Days, #30 TAB [Vitamin C ] () Unknown Strength Unknown Dose [Vitamin D] () [Vitamin E] () Zinc Sulfate (Zinc) 50 Mg Zinc (220 Mg) Tablet 1 TAB PO DAILY for 30 Days, #30 TAB 0 Refills Discontinued Medications: Hydrocodone Bit/Acetaminophen (Hydrocodone-Apap 10-325 Tablet) 10mg/325mg Tablet 1 TAB PO TID PRN PRN for pain for 30 Days, #90 TAB Discharge Summary: History of Present Illness From H&P: "This is a 64-year-old female with past medical history of TIA, vulvar cancer came to the ER with a chief complaint of and tolerable back pain. In 08/04, while she was trying to lift heavy pot, she felt a popping sensation in her back and had pain, she went to her PCP, was given [place] and cyclobenzaprine for pain and an x-ray was done which showed L1 compression fracture. She was referred to orthopedic fashion, Dr. Christopher Rios who recommended an MRI which is scheduled for 10/03/24. Her pain was controlled for a few days. About two weeks ago she tried to move a heavy meat packet in the Fridge and post that she started to have on tolerable, could not be managed with the oral pain medications. She was unable to get up because of pain. She denied any bowel or bladder incontinence. In 2002 she fell off from a horse, suffered injuries to pelvis and sacrum. Currently her back pain scale is 8/10. She also had constipation since she started taking the [place]. Her last bowel movement was two weeks ago, she tried Dulcolax Metamucil but no bowel movement. She is able to pass bowel gas. She has diffuse abdominal pain and feels bloated. Denies any nausea or vomiting." Hospital Course Diagnostic findings were notable for CT revealing severe anterior wedging deformity of L1 and T12 vertebral bodies and fecal retention in the colon. Patient was started on supportive care, laxatives, stool softener, enema, TLSO brace. Subsequent MRI thoracic and lumbar showed acute/subacute T12 and L1 compression fractures with retropulsion and moderate to severe canal stenosis, disc protrusion at T3-T4, chronic L5 compression deformity. Patient did not experience further complications throughout the entire hospital stay. Patient was cleared for discharge with HH by physical therapy service. Patient was seen and examined on the day of discharge. Patient had a bowel movement on day of discharge. On day of discharge, vss and labs unremarkable. All labs, diagnostic workups, discharge plan discussed with patient in details during visit before discharge. All questions and concerns answered to the best of my professional knowledge. Patient is to be discharged with HH and to follow-up with PCP within 2 weeks. Physical Exam General: Generalized weakness, A&Ox 3, NAD HEENT: Normocephalic, PERRLA Neck: Supple, trachea midline, no JVD Chest: Clear to auscultation bilaterally Cardiovascular: RRR, S1&S2 GI: Soft and nontender Extremities: No cyanosis/clubbing/or edema SECURITY SYSTEMS ADMINISTRATOR: CN II-XII intact, no focal deficits Musculoskeletal: Paraspinal muscle tenderness Skin: Warm and intact *Problems/Diagnosis: (1) Intractable back pain Status: Acute (2) Constipation Status: Acute (3) Compression fracture Status: Acute Total Time Spent on D/C: > 30 Minutes Date of Service: Sep 20, 2024 Billing Provider: MARY HEARN Common Visit Codes: 30918-JIA/OBS DISCH DAY >30min Problem Qualifiers (1) Constipation: Qualified Codes: K59.03 - Drug induced constipation MARY HEARN Sep 20, 2024 17:36
== END 2024-09-20 15:50 | disposition home health service (06) | DRG 552 ==
LOC: ER 12:48 → ED HOLD 23:05 → ORTHO 4S 09-19 01:17
PROVIDERS: ADMIT Internal Medicine Critical Care Medicine; ATTEND Nurse Practitioner Family
PROC: BW211ZZ Computerized Tomography (CT Scan) of Abdomen and Pelvis using Low Osmolar Contrast (ICD-10-PCS; principal; 2024-09-18)
DX: M48.05 Spinal stenosis, thoracolumbar region (principal); M48.55XA Collapsed vertebra, not elsewhere classified, thoracolumbar region, initial encounter for fracture; K59.03 Drug induced constipation; M51.24 Other intervertebral disc displacement, thoracic region; Z66 Do not resuscitate; Z88.2 Allergy status to sulfonamides; Z86.73 Personal history of transient ischemic attack (TIA), and cerebral infarction without residual deficits; Z85.44 Personal history of malignant neoplasm of other female genital organs; Z87.891 Personal history of nicotine dependence
CPT/HCPCS: 36415; 72146; 72148; 74177; 80053; 80061; 81003; 83036; 83690; 83735; 84443; 85025; 87081; 96361; 96372; 96374; 97110; 97116; 97162; 99285; G0378; J1171; J1644; J1885; J2212; J2270; J7030; Q9967